=== PATIENT | female | born 2000 | race African-American/Black ===

== ENCOUNTER 2021-10-29 18:57 | Emergency (ER) | payer OTHER ==
[~2021-10-29] VITALS: Ht 172.7 cm; Wt 109.1 kg
[2021-10-29 18:58] VITALS: TEMP 98.1
[2021-10-29] MEDS ORDERED: FLEXERIL 1010 MG/TAB PO (20:45)
[2021-10-29 21:02] VITALS: BP 137/87; PULSE 84
== END 2021-10-29 21:01 | disposition home or self-care (01) ==
LOC: COL.ER 18:57
DX: S39.012A Strain of muscle, fascia and tendon of lower back, initial encounter (principal); R51.9 Headache, unspecified; V89.2XXA Person injured in unspecified motor-vehicle accident, traffic, initial encounter; Y92.410 Unspecified street and highway as the place of occurrence of the external cause